=== PATIENT | female | born 1995 | race Two or more races ===

== ENCOUNTER 2022-04-23 17:04 | Emergency (ER) | payer OTHER ==
[~2022-04-23] VITALS: Ht 160 cm; Wt 59.0 kg
[2022-04-23 18:23] LABS: Urine Bacteria FEW /hpf (None Seen); Urine Blood TRACE /uL (Negative); Urine Hyaline Cast FEW /lpf (0 - 2); Urine Mucus FEW (None Seen); Urine WBC 13 /hpf (0 - 5)
[2022-04-23] MEDS ORDERED: NITR-87 PO (18:39)
[2022-04-23 18:50] VITALS: BP 117/63
== END 2022-04-23 18:53 | disposition home or self-care (01) ==
LOC: ER 17:04
DX: N39.0 Urinary tract infection, site not specified (principal); Z79.899 Other long term (current) drug therapy
CPT/HCPCS: 81001; 81025